=== PATIENT | male | born 1985 | race Caucasian/White ===

== ENCOUNTER 2023-08-01 08:30 | Outpatient (CLI) | payer BC, SELFPAY ==
[2023-08-01 09:25] LABS: Thyroid Stimulating Hormone 0.29 uIU/mL (0.27-4.20)
== END 2023-08-01 08:31 | disposition home or self-care (01) ==
LOC: LAB 08:32
PROVIDERS: Family Provider Family Medicine; PCP Family Medicine; Visit Provider Internal Medicine
DX: E03.9 Hypothyroidism, unspecified (principal)
CPT/HCPCS: 36415; 84439; 84443

== ENCOUNTER 2023-12-17 15:05 | Outpatient (CLI) | payer BC, SELFPAY ==
[2023-12-17 16:10] LABS: Free T4 Free Thyroxine 0.57 ng/dL (0.82-1.77); Thyroid Stimulating Hormone 3.38 uIU/mL (0.27-4.20)
== END 2023-12-17 15:06 | disposition home or self-care (01) ==
LOC: LAB 15:08
PROVIDERS: Family Provider Family Medicine; PCP Family Medicine; Visit Provider Internal Medicine
DX: E03.9 Hypothyroidism, unspecified (principal)
CPT/HCPCS: 36415; 84439; 84443